=== PATIENT | female | born 1990 | race American Indian/Alaskan Native ===

== ENCOUNTER 2019-06-13 00:18 | Inpatient (IN) | payer MEDICAID ==
[2019-06-13] MEDS ORDERED: LACTATED RINGERS 1,000 ML ONE (00:31)
[2019-06-13] MEDS ORDERED: LIDOCAINE (2%) 20 MG/1 ML VIAL 20 ML MDV INFILTRATI ONE (01:03)
[2019-06-13] MEDS ORDERED: AMPICILLIN/NS 2 GM/100 ML 2 GM/100 ML BAG IV ONE (01:03)
[2019-06-13] MEDS ORDERED: ONDANSETRON 4 MG/2 ML INJ IV PRN ×2 (01:03→18:41)
[2019-06-13] MEDS ORDERED: PROMETHAZINE 25 MG TAB PO PRN ×2 (01:03→18:41)
[2019-06-13] MEDS ORDERED: TERBUTALINE 1 MG/1 ML INJ SUB-Q PRN (01:03)
[2019-06-13] MEDS ORDERED: TERBUTALINE 1 MG/1 ML INJ IVP PRN (01:03)
[2019-06-13] MEDS ORDERED: BUTORPHANOL 2 MG/1 ML INJ IV PRN (01:03)
[2019-06-13] MEDS ORDERED: MINERAL OIL 30 ML ORAL LIQD PO PRN (01:03)
[2019-06-13] MEDS ORDERED: ePHEDrine SULFATE 50 MG/1 ML INJ IV PRN ×2 (01:03→02:03)
[2019-06-13] MEDS ORDERED: NALOXONE 0.4 MG/1 ML INJ IV PRN (01:03)
[2019-06-13] MEDS ORDERED: fentaNYL 100 MCG/2 ML INJ IV PRN (01:03)
--- NOTE | 2019-06-13 01:20 | History and Physical Report ---
History of Present Illness Date of examination: 06/13/19 Date of admission: 06/13/19 00:31 Chief complaint: Contractions History of present illness: Pt is a 28 yo at 41.0 weeks EGA who presents with contractions q4 minutes for the past 2 hours. She reports positive movement and denies LOF or vaginal bleeding. She has received care with [facility], transfer at 33.3 weeks EGA. Her has been complicated by HSV with outbreak, sickle cell trait, and well-controlled depression. She is GBS positive. In triage, FHT deceleration into the 60s for 2 minutes. Good recovery, no further decels. Past History Past Medical History: hematologic disorders (Sickle cell trait, anemia), other (depression) Past Surgical History: [employer]/uterine surgery (cervix cryo) [employer] History: abnormal PAP smear, herpes (outbreak this . On Valtrex suppression) Family/Genetic History: other (Autism) Social history: no significant social history - Obstetrical History Expected Date of Delivery: 06/06/19 Actual Gestation: 41 Week(s) 0 Day(s) : 3 Para: 0 Hx # Term Pregnancies: 0 Number of Pregnancies: 0 Spontaneous Abortions: 1 Induced : 1 Number of Living Children: 0 Medications and Allergies Allergies Allergy/AdvReac Type Severity Reaction Status Date / Time No Known Allergies Allergy Verified 06/13/19 00:41 Home Medications Medication Instructions Recorded Confirmed Last Taken Type Vitamin 1 tab PO DAILY 06/13/19 06/13/19 06/12/19 History 899 valACYclovir [Valtrex] 500 mg PO DAILY 06/13/19 06/13/19 06/12/19 History 899 Active Meds: Active Medications Butorphanol Tartrate (Stadol) 2 mg IV Q2H PRN PRN Reason: Pain , Severe (7-10) Ephedrine Sulfate (Ephedrine Sulfate) 10 mg IV Q2M PRN PRN Reason: Hypotension Fentanyl (Sublimaze) 100 mcg IV Q2H PRN PRN Reason: Labor Pain Oxytocin/Sodium Chloride (Pitocin/Ns 20 Unit/1000ml Drip) 20 units in 1,000 mls @ 125 mls/hr IV DIRECT KLARISSA Oxytocin/Sodium Chloride (Pitocin/Ns 30 Unit/500ml) 30 units in 500 mls @ 1 mls/hr IV TITR KLARISSA; Protocol Oxytocin/Sodium Chloride (Pitocin/Ns 30 Unit/500ml) 30 units in 500 mls @ 2 mls/hr IV TITR KLARISSA; Protocol Lactated Ringer's (Lactated Ringers) 1,000 mls @ 125 mls/hr IV DIRECT KLARISSA Ampicillin Sodium (Ampicillin/Ns 2 Gm/100 Ml) 2 gm in 100 mls @ 100 mls/hr IV ONCE ONE; Protocol Stop: 06/13/19 02:02 Ampicillin Sodium (Ampicillin/Ns 1 Gm/50 Ml) 1 gm in 50 mls @ 100 mls/hr IV Q4HR KLARISSA; Protocol Mineral Oil (Mineral Oil) 30 ml PO QHS PRN PRN Reason: Constipation Naloxone HCl (Narcan 0.4 Mg/1 Ml) 0.1 mg IV Q2MIN PRN PRN Reason: Res Rate </= 8 or 02 SAT < 92% Ondansetron HCl (Zofran) 4 mg IV Q8H PRN PRN Reason: Nausea And Vomiting Promethazine HCl (Phenergan) 25 mg PO Q6H PRN PRN Reason: Nausea And Vomiting Terbutaline Sulfate (Brethine) 0.25 mg SUB-Q ONCE PRN PRN Reason: Hyperstimulation/Hypertonicity Terbutaline Sulfate (Brethine) 0.25 mg IVP ONCE PRN PRN Reason: Hyperstimulation/Hypertonicity Review of Systems All systems: negative Genitourinary: vaginal discharge (clear, mucus), contractions, no vaginal bleeding, no leakage of fluid, no genital sores - Physical Exam Lungs: Positive: Normal air movement Abdomen: Positive: normal appearance, soft Uterus: Positive: enlarged (gravid), normal contour Extremities: Positive: normal - Obstetrical FHR: category 2 (deceleration to 60's for 2 minutes at triage, moderate variability, no further decels noted) Uterine Contraction Monitor Mode: External Cervical Dilatation: 4.5 Cervical Effacement Percentage: 70 station: -2 Uterine Contraction Frequency (min): 2 Uterine Contraction Duration: 70 Uterine Contraction Pattern: Regular Uterine Tone Measurement Phase: Contraction Uterine Contraction Intensity: Strong/Firm Results All other labs normal. Assessment and Plan A: 28 yo at 41.0 weeks EGA in active labor GBS positive, membranes intact Hx HSV, no current outbreak, on suppressive therapy Depression P: Admit to L&D for labor Augment PRN Administer Ampicillin prophylaxis Monitor mood Pain relief as requested Anticipate
[2019-06-13] MEDS: LACTATED RINGERS 1,000 ML IV SCH ×2 (01:23→06:24)
[2019-06-13 01:25] LABS: Hematocrit 36.9 % (30.3-42.9); Hemoglobin 11.8 gm/dl (10.1-14.3); Mean Corpuscular HGB Conc 32 % (30-34); Mean Corpuscular Volume 84 fl (79-97); Platelet Count 174 K/mm3 (140-440); Red Blood Count 4.39 M/mm3 (3.65-5.03); Red Cell Distribution Width 18.1 % (13.2-15.2)
[2019-06-13] MEDS ORDERED: OXYTOCIN DRIP 30 UNITS/500 ML BAG IV SCH ×2 (02:00)
[2019-06-13] MEDS ORDERED: OXYTOCIN 20 UNIT/1000ML DRIP 20 UNITS/1,000 ML BAG IV SCH (02:00)
[2019-06-13] MEDS ORDERED: NALOXONE 2 MG/2 ML INJ IV PRN (02:03)
--- NOTE | 2019-06-13 02:04 | Anesthesia Consultation ---
Anesthesia Consult and Med Hx Date of service: 06/13/19 - Airway Anesthetic Teeth Evaluation: Good ROM Head & Neck: Adequate Mental/Hyoid Distance: Adequate Mallampati Class: Class II Intubation Access Assessment: Probably Good - Pulmonary Exam CTA: Yes - Cardiac Exam Cardiac Exam: RRR - Pre-Operative Health Status ASA Pre-Surgery Classification: ASA2 Proposed Anesthetic Plan: Epidural - Pulmonary Hx Asthma: No COPD: No Hx Pneumonia: No - Cardiovascular System Hx Hypertension: No - Central Nervous System Hx Seizures: No Hx Psychiatric Problems: Yes (hx depression) - Endocrine Hx Renal Disease: No Hx End Stage Renal Disease: No Hx Hypothyroidism: No Hx Hyperthyroidism: No - Hematic Hx Anemia: No Hx Sickle Cell Disease: No - Other Systems Hx Alcohol Use: No
[2019-06-13] MEDS: fentaNYL-BUPIV 2 MCG/ML-0.125% 200 MCG/100 ML BAG EPIDURAL SCH ×2 (02:49→11:15)
[2019-06-13] MEDS: AMPICILLIN/NS 1 GM/50 ML 1 GM/50 ML BAG IV SCH ×4 (05:00→17:40)
[2019-06-13] MEDS ORDERED: GENTAMICIN 360 MG in SODIUM CHLORIDE 0.9% 100 ML IV SCH (09:00)
[2019-06-13] MEDS ORDERED: ACETAMINOPHEN 325 MG TAB PO NR (09:05)
[2019-06-13] MEDS ORDERED: SODIUM CHLORIDE 0.9% 1000 ML 0 ML ONE (16:52)
[2019-06-13] MEDS ORDERED: ACETAMINOPHEN 325 MG TAB PO ONE (17:00)
[2019-06-13] MEDS ORDERED: diphenhydrAMINE 25 MG CAP PO PRN (18:41)
[2019-06-13] MEDS ORDERED: ACETAMINOPHEN 325 MG TAB PO PRN (18:41)
[2019-06-13] MEDS ORDERED: PROMETHAZINE 25 MG RECT SUPP PR PRN (18:41)
[2019-06-13] MEDS ORDERED: LANOLIN/ZINC/DIMETHICONE (LANSINOH) 7 GM TP PRN (18:41)
[2019-06-13] MEDS ORDERED: WITCH HAZEL/ GLYCERIN PAD TP PRN (18:41)
[2019-06-13] MEDS ORDERED: MAGNESIUM HYDROXIDE (MOM) ORAL LIQD UDC PO PRN (18:41)
--- NOTE | 2019-06-13 18:46 | Procedure Note ---
OB Delivery Note - Delivery Date of Delivery: 06/13/19 Surgeon: WILMA JANSEN Estimated blood loss: 300cc - Vaginal Delivery presentation: vertex Intrapartum events: febrile- temp >100.3, meconium Delivery augmentation: pitocin Delivery monitor: external FHT, external uterine Route of delivery: Delivery placenta: spontaneous Delivery cord: 3 umbilical vessels Episiotomy: none Delivery laceration: 3rd degree Delivery repair: vicryl Anesthesia: epidural Delivery comments: Patient progressed to complete complete +1 and pushed to deliver a liveborn male with Apgars of 4 and 9 weight 7 lbs. 9 oz. After delivery of the head the shoulders delivered without difficulty. There was noted to be meconium- stained fluid at the time of delivery. The infant umbilical cord was clamped and cut and the infant was placed on the monitor for further evaluation and resuscitation. The placenta delivered spontaneously intact with a three-vessel cord. The patient sustained a midline third-degree laceration was repaired with 3-0 and 2-0 Vicryl suture in normal fashion. Estimated blood loss of 300 mL - A at 1 minute: 4 at 5 minutes: 9 Gender: Male (weight 7 lbs. 9 oz.)
[2019-06-13] MEDS: IBUPROFEN 600 MG TAB PO SCH (20:11)
[2019-06-13] MEDS: HYDROcodone/ACETAMINOPHEN 5-325 MG TAB PO PRN (21:00)
[2019-06-14] MEDS ORDERED: TETANUS,DIPH,PERTUSS(ACELL) VACCINE 0.5 ML SYRINGE IM ONE (05:53)
[2019-06-14] MEDS: IBUPROFEN 600 MG TAB PO SCH ×4 (06:07→20:08)
[2019-06-14 09:34] LABS: Hematocrit 24.7 % (30.3-42.9); Hemoglobin 8.1 gm/dl (10.1-14.3)
--- NOTE | 2019-06-14 12:17 | Progress Note ---
Assessment and Plan - Patient Problems (1) Vaginal delivery Current Visit: Yes Status: Acute Plan to address problem: patient doing well discharge home tomorrow Subjective - Subjective Date of service: 06/14/19 Interval history: Patient doing well. Pain is controlled Patient reports: appetite normal, voiding normally, pain well controlled : doing well Objective - Vital Signs Latest vital signs: Vital Signs Temp Pulse Resp BP BP Pulse Ox 06/14/19 08:25 97.7 F 97 H 18 103/58 06/14/19 06:41 18 06/14/19 06:07 18 06/14/19 04:00 98.6 F 74 16 115/64 06/14/19 00:54 18 06/14/19 00:00 98.4 F 74 18 143/65 06/13/19 23:54 18 06/13/19 22:00 98.4 F 96 H 18 127/71 97 06/13/19 20:44 58 L 87 06/13/19 20:40 94 H 100 06/13/19 20:35 91 H 100 06/13/19 20:34 83 139/77 06/13/19 20:30 81 99 06/13/19 20:25 89 100 06/13/19 20:20 103 H 100 06/13/19 20:19 94 H 138/72 06/13/19 20:15 82 100 06/13/19 20:10 98 H 98 06/13/19 20:05 98 H 99 06/13/19 20:04 100 H 136/72 06/13/19 20:00 102 H 99 06/13/19 19:55 98 H 99 06/13/19 19:50 101 H 100 06/13/19 19:49 100 H 124/94 06/13/19 19:45 90 100 06/13/19 19:40 101 H 99 06/13/19 19:35 102 H 99 06/13/19 19:30 113 H 99 06/13/19 19:25 120 H 100 06/13/19 19:20 113 H 98 06/13/19 19:19 108 H 137/58 86 06/13/19 19:18 99.5 F 16 06/13/19 19:14 104 H 99 06/13/19 19:09 110 H 92 06/13/19 19:04 108 H 150/73 98 06/13/19 19:01 109 H 92 06/13/19 18:59 99 H 99 06/13/19 18:54 119 H 97 06/13/19 18:49 123 H 147/67 97 06/13/19 18:44 116 H 97 06/13/19 18:39 89 98 06/13/19 18:34 112 H 106/71 97 06/13/19 18:29 104 H 99 06/13/19 18:25 100.3 F H 104 H 136/63 06/13/19 18:24 119 H 98 06/13/19 18:19 133 H 187/67 98 06/13/19 18:14 136 H 98 06/13/19 18:09 88 97 06/13/19 18:04 106 H 163/82 97 06/13/19 17:59 107 H 97 06/13/19 17:54 101 H 97 06/13/19 17:49 97 H 132/72 98 06/13/19 17:44 94 H 97 06/13/19 17:39 94 H 97 06/13/19 17:34 99 H 143/77 98 06/13/19 17:32 100 F H 06/13/19 17:29 97 H 97 06/13/19 17:24 94 H 97 06/13/19 17:20 88 148/86 06/13/19 17:19 91 H 98 06/13/19 17:14 109 H 98 06/13/19 17:09 90 98 06/13/19 17:04 98 H 147/79 95 06/13/19 16:59 119 H 98 06/13/19 16:55 80 68 L 06/13/19 16:54 95 H 99 06/13/19 16:49 126 H 142/84 98 06/13/19 16:44 83 99 06/13/19 16:40 20 06/13/19 16:39 90 97 06/13/19 16:34 85 152/77 98 06/13/19 16:31 101.1 F H 06/13/19 16:30 80 140/76 06/13/19 16:29 101 H 98 06/13/19 16:24 96 H 98 06/13/19 16:19 87 96 06/13/19 16:14 85 97 06/13/19 16:09 88 97 06/13/19 16:04 92 H 97 06/13/19 15:59 92 H 98 06/13/19 15:54 104 H 98 06/13/19 15:49 92 H 97 06/13/19 15:44 99 H 97 06/13/19 15:39 98 H 97 06/13/19 15:34 90 97 06/13/19 15:29 100 H 97 06/13/19 15:24 87 98 06/13/19 15:19 98 H 98 06/13/19 15:14 98 H 97 06/13/19 15:09 86 97 06/13/19 15:04 95 H 96 06/13/19 14:59 79 97 06/13/19 14:54 78 98 06/13/19 14:49 82 98 06/13/19 14:45 99.6 F 06/13/19 14:44 75 99 06/13/19 14:39 88 97 06/13/19 14:35 85 144/89 06/13/19 14:34 80 97 06/13/19 14:29 94 H 97 06/13/19 14:24 73 100 06/13/19 14:19 82 149/79 97 06/13/19 14:14 86 97 06/13/19 14:09 85 96 06/13/19 14:04 81 149/78 98 06/13/19 13:59 81 97 06/13/19 13:54 78 98 06/13/19 13:51 81 124/79 06/13/19 13:49 88 99 06/13/19 13:44 78 99 06/13/19 13:39 89 98 06/13/19 13:38 99.0 F 06/13/19 13:34 85 99 06/13/19 13:29 83 99 06/13/19 13:24 91 H 99 06/13/19 13:20 57 L 146/92 90 06/13/19 13:19 89 99 06/13/19 13:14 77 98 06/13/19 13:09 76 98 06/13/19 13:05 73 140/77 06/13/19 13:04 82 100 06/13/19 12:59 84 99 06/13/19 12:54 79 99 06/13/19 12:49 91 H 136/66 99 06/13/19 12:44 90 99 06/13/19 12:39 74 98 06/13/19 12:35 76 131/59 06/13/19 12:34 77 98 06/13/19 12:29 80 98 06/13/19 12:24 95 H 98 06/13/19 12:19 77 159/89 93 06/13/19 12:18 86 98 Intake and Output 06/13/19 06/14/19 06/14/19 22:59 06:59 14:59 Intake Total 600 120 Output Total 500 1100 400 Balance -500 -500 -280 Intake: Oral 360 120 Intake, Free Water 240 Output: Urine 500 1100 400 Indwelling Catheter 500 Void 1100 400 Other: Total, Intake Amount 360 120 Total, Output Amount 500 600 400 # Voids Void 1 Estimated Blood Loss 300 - Exam Abdomen: Present: normal appearance, soft Uterus: Present: normal, firm - Labs Labs: Abnormal lab results 06/14/19 Range/Units 08:41 Hgb 8.1 L D (10.1-14.3) gm/dl Hct 24.7 L D (30.3-42.9) %
--- NOTE | 2019-06-14 12:19 | Discharge Summary ---
Providers - Providers Date of Admission: 06/13/19 00:31 Date of discharge: 06/15/19 Attending physician: ALBINO MCCORMACK MD Primary care physician: ALBINO MCCORMACK MD Hospitalization Reason for admission: active labor Delivery: Laceration: 3rd degree Discharge diagnosis: IUP at term delivered [place] baby: male Pertinent studies: Patient admitted in active labor. Had a complicated by 3rd degree laceration. uncomplicated Condition at discharge: Good Disposition: DC-01 TO HOME OR SELFCARE - Discharge Diagnoses (1) Vaginal delivery Status: Acute Plan - Discharge Medications Prescriptions: Ibuprofen [Motrin] 800 mg PO Q8HR PRN #60 tablet PRN Reason: Pain, Mild (1-3) HYDROcodone/APAP 5-325 [[place] 5/325] 1 each PO Q6HR PRN #20 tablet PRN Reason: Pain - Provider Discharge Summary Activity: no sex for 6 weeks, no heavy lifting 4 weeks, no strenuous exercise Diet: routine Instructions: routine Additional instructions: [] Smoking cessation referral if applicable(refer to patient education folder for contact #) [] Refer to [facility] Booklet Call your doctor immediately for: * Fever > 100.5 * Heavy vaginal bleeding ( >1 pad per hour) * Severe persistent headache * Shortness of breath * Reddened, hot, painful area to leg or breast * schedule visit in 4 weeks - Follow up plan
[2019-06-14] MEDS: HYDROcodone/ACETAMINOPHEN 5-325 MG TAB PO PRN (16:12)
[2019-06-14] MEDS ORDERED: BENZOCAINE/MENTHOL 20/0.5% TOP SPRAY 56 GM TP PRN (18:58)
[2019-06-15] MEDS: HYDROcodone/ACETAMINOPHEN 5-325 MG TAB PO PRN ×2 (04:59→15:53)
[2019-06-15] MEDS: IBUPROFEN 600 MG TAB PO SCH (12:37)
[2019-06-15 16:50] VITALS: BP 135/57
[2019-06-15] MEDS ORDERED: ONDANSETRON 4 MG ODT TAB PO PRN (18:18)
[2019-06-15] MEDS ORDERED: ONDANSETRON 4 MG ODT TAB ONE (18:19)
== END 2019-06-15 20:30 | disposition home or self-care (01) | DRG 774 ==
LOC: TRG 00:18 → LD 00:31 → OB 21:25
PROVIDERS: ADMIT Obstetrics & Gynecology; ATTEND Obstetrics & Gynecology
PROC: 10E0XZZ Delivery of Products of Conception, External Approach (ICD-10-PCS; principal; 2019-06-13)
PROC: 0DQR0ZZ Repair Anal Sphincter, Open Approach (ICD-10-PCS; 2019-06-13)
PROC: 3E0R3BZ Introduction of Anesthetic Agent into Spinal Canal, Percutaneous Approach (ICD-10-PCS; 2019-06-13)
PROC: 00HU33Z Insertion of Infusion Device into Spinal Canal, Percutaneous Approach (ICD-10-PCS; 2019-06-13)
PROC: 3E0234Z Introduction of Serum, Toxoid and Vaccine into Muscle, Percutaneous Approach (ICD-10-PCS; 2019-06-14)
DX: O99.824 Streptococcus B carrier state complicating childbirth (principal); O75.2 Pyrexia during labor, not elsewhere classified; O99.02 Anemia complicating childbirth; D57.3 Sickle-cell trait; O99.344 Other mental disorders complicating childbirth; F32.9 Major depressive disorder, single episode, unspecified; O77.0 Labor and delivery complicated by meconium in amniotic fluid; O70.20 Third degree perineal laceration during delivery, unspecified; Z3A.41 41 weeks gestation of pregnancy; Z37.0 Single live birth; Z23 Encounter for immunization
CPT/HCPCS: 36415; 76815; 76819; 85014; 85018; 85027; 86592; 86850; 86900; 86901; 90471; 90715; G0378; A6250; J0290; J1580; J2405; J2590; J3010; J7030; J7120; Q0162

== ENCOUNTER 2022-05-17 14:30 | Emergency (ER) | payer MEDICAID ==
[2022-05-17 15:20] VITALS: BP 125/67
== END 2022-05-18 13:28 | disposition left against medical advice (07) ==
LOC: ED 14:30
DX: R51.9 Headache, unspecified (principal); Z53.21 Procedure and treatment not carried out due to patient leaving prior to being seen by health care provider